=== PATIENT | female | born 1995 | race Caucasian/White ===

== ENCOUNTER → 2016-07-15 | Outpatient (CLI) | payer BC ==
[~2016-07-15] MED LIST: DOCU100C37 PO; DOXY1TAB3 PO; IBUP-1780 PO; OMEP20TA33 PO; OXYC-465 PO; PREN1TAB86 PO
--- OUTSIDE RECORDS SUMMARY | 2016-07-15 08:39 | XMS REPORT | Continuity of Care Document ---
Author Author [facility] Organization [facility] Address Unknown Phone Unavailable Care Team Providers Care Switch Crew Supervisor Name Role Phone NO, LOCAL PHYSICIAN PCP Unavailable Insurance Providers Payer Name Policy Number Subscriber Name Relationship [facility] [id number] Josh Crockett 19 Father Advance Directives Directive Response Recorded Date/Time Advance Directives No 03/22/16 12:44pm Health Care Power of Body Cleaner No 03/22/16 12:44pm Organ Donor Yes 03/22/16 12:44pm Resuscitation Status Full Code 03/22/16 12:44pm Problems No problem information available. Medications Current Home Medications Medication Dose Units Route Directions Days/Qty Instructions Start Date Doxylamine/Pyridoxine Hcl 1 Each 1 Each Oral Bedtime 03/22/16 Vit W-Ca,Fe,Fa(<1 Mg) 1 Each 1 Each Oral Daily 03/22/16 Social History Social History Problem Response Recorded Date/Time Recent Foreign Travel No 03/22/2016 12:47pm Recent Infectious Disease Exposure No 03/22/2016 12:47pm Smoking Status Never a Smoker 03/22/2016 12:46pm Query Response Start Date Stop Date Smoking Status Never a Smoker Hospital Discharge Instructions No hospital discharge instructions. Plan of Care Discharge Date 03/22/16 2:50pm Instructions/Education Provided OB OUTPATIENT DISCHARGE Hyperemesis Gravidarum (DC) Prescriptions See Medication Section Functional Status No functional status results. Allergies, Adverse Reactions, Alerts Allergen Type Severity Reaction Status Last Updated NKANo Known Allergies Allergy Mild Active 09/15/09 Immunizations No immunization records. Vital Signs Acute Vital Signs Vital Response Date/Time Temperature (Fahrenheit) 98.6 degrees F (97.6 - 99.5) 03/22/2016 2:50pm Temperature (Calculated Celsius) 37.64503 degrees C (36.4 - 37.5) 03/22/2016 2:00pm Temperature Source Tympanic 03/22/2016 2:50pm Pulse Rate (adult) 57 bpm (60 - 90) 03/22/2016 2:50pm Respiratory Rate 16 bpm (12 - 24) 03/22/2016 2:50pm O2 Sat by Pulse Oximetry 99 % (88 - 100) 03/22/2016 2:50pm Blood Pressure 106/57 mm Hg 03/22/2016 2:50pm Blood Pressure Mean 73 mm Hg 03/22/2016 11:07am Pain Numeric Pain Scale 0-No Pain 03/22/2016 2:50pm Height (Feet) 5 feet 03/22/2016 12:47pm Height (Inches) 0.00 inches 03/22/2016 12:47pm Height (Calculated Centimeters) 152.318122 cm 03/22/2016 12:47pm Weight (Pounds) 112 pounds 03/22/2016 12:47pm Weight (Ounces) 0.0 oz 03/22/2016 12:47pm Weight (Calculated Grams) 35148.35 gm 03/22/2016 12:47pm Weight (Calculated Kilograms) 50.394808 kilograms 03/22/2016 12:47pm Calculated BMI 21.9 03/22/2016 12:47pm Results Laboratory Results Test Name Result Units Flags Reference Collection Date/Time Result Date/ Time Comments White Blood Count 8.1 10^3/uL 4.3-11.0 03/22/2016 11:15am 03/22/2016 11 :42am Red Blood Count 4.20 10^6/uL L 4.35-5.85 03/22/2016 11:15am 03/22/2016 11 :42am Hemoglobin 13.3 G/DL 11.5-16.0 03/22/2016 11:15am 03/22/2016 11:42am Hematocrit 36 % 35-52 03/22/2016 11:15am 03/22/2016 11:42am Mean Corpuscular Volume 86 FL 80-99 03/22/2016 11:15am 03/22/2016 11: 42am Mean Corpuscular Hemoglobin 32 PG 25-34 03/22/2016 11:15am 03/22/2016 11:42am Mean Corpuscular Hemoglobin Concent 37 G/DL H 32-36 03/22/2016 11:15am 11:42am Red Cell Distribution Width 12.4 % 10.0-14.5 03/22/2016 11:15am 2015 11:42am Platelet Count 220 10^3/uL 130-400 03/22/2016 11:15am 03/22/2016 11: 42am Mean Platelet Volume 10.5 FL H 7.4-10.4 03/22/2016 11:15am 03/22/2016 11: 42am Neutrophils (%) (Auto) 67 % 42-75 03/22/2016 11:15am 03/22/2016 11: 42am Lymphocytes (%) (Auto) 25 % 12-44 03/22/2016 11:15am 03/22/2016 11: 42am Monocytes (%) (Auto) 7 % 0-12 03/22/2016 11:15am 03/22/2016 11:42am Eosinophils (%) (Auto) 0 % 0-10 03/22/2016 11:15am 03/22/2016 11:42am Basophils (%) (Auto) 0 % 0-10 03/22/2016 11:15am 03/22/2016 11:42am Neutrophils # (Auto) 5.4 X 10^3 1.8-7.8 03/22/2016 11:15am 03/22/2016 11:42am Lymphocytes # (Auto) 2.1 X 10^3 1.0-4.0 03/22/2016 11:15am 03/22/2016 11:42am Monocytes # (Auto) 0.6 X 10^3 0.0-1.0 03/22/2016 11:15am 03/22/2016 11: 42am Eosinophils # (Auto) 0.0 10^3/uL 0.0-0.3 03/22/2016 11:15am 03/22/2016 11:42am Basophils # (Auto) 0.0 10^3/uL 0.0-0.1 03/22/2016 11:15am 03/22/2016 11 :42am Urine Color YELLOW 03/22/2016 11:30am 03/22/2016 12:06pm Urine Clarity CLEAR 03/22/2016 11:30am 03/22/2016 12:06pm Urine pH 6 5-9 03/22/2016 11:3003/22/2016 12:06pm Urine Specific [place] 1.025 * 1.016-1.022 03/22/2016 11:30am 2015 12:06pm Urine Protein 1+ * NEGATIVE 03/22/2016 11:30am 03/22/2016 12:06pm Urine Glucose (UA) NEGATIVE NEGATIVE 03/22/2016 11:3003/22/2016 12 :06pm Urine RBC (Auto) NEGATIVE NEGATIVE 03/22/2016 11:3003/22/2016 12: 06pm Urine Ketones 3+ * NEGATIVE 03/22/2016 11:3003/22/2016 12:06pm Urine Nitrite NEGATIVE NEGATIVE 03/22/2016 11:30am 03/22/2016 12: 06pm Urine Bilirubin NEGATIVE NEGATIVE 03/22/2016 11:30am 03/22/2016 12: 06pm Urine Urobilinogen NORMAL MG/DL NORMAL 03/22/2016 11:3003/22/2016 12 :06pm Urine Leukocyte Esterase 1+ * NEGATIVE 03/22/2016 11:3003/22/2016 12 :06pm Urine RBC NONE /HPF 03/22/2016 11:30am 03/22/2016 12:06pm Urine WBC 0-2 /HPF 03/22/2016 11:30am 03/22/2016 12:06pm Urine Bacteria NEGATIVE /HPF 03/22/2016 11:3003/22/2016 12:06pm Urine Squamous Epithelial Cells 10-25 /HPF * 03/22/2016 11:302015 12:06pm Urine Crystals NONE /LPF 03/22/2016 11:3003/22/2016 12:06pm Urine Casts NONE /LPF 03/22/2016 11:30am 03/22/2016 12:06pm Urine Mucus LARGE /LPF * 03/22/2016 11:30am 03/22/2016 12:06pm Urine Culture Indicated NO 03/22/2016 11:30am 03/22/2016 12:06pm Sodium Level 137 MMOL/L 135-145 03/22/2016 11:15am 03/22/2016 11:52am Potassium Level 3.7 MMOL/L 3.6-5.0 03/22/2016 11:15am 03/22/2016 11: 52am Chloride Level 106 MMOL/L 98-107 03/22/2016 11:15am 03/22/2016 11:52am Carbon Dioxide Level 22 MMOL/L 21-32 03/22/2016 11:15am 03/22/2016 11: 52am Anion Gap 9 MMOL/L 5-14 03/22/2016 11:15am 03/22/2016 11:52am Blood Urea Nitrogen 9 MG/DL 7-18 03/22/2016 11:15am 03/22/2016 11:52am Creatinine 0.71 MG/DL 0.60-1.30 03/22/2016 11:15am 03/22/2016 11:52am BUN/Creatinine Ratio 13 03/22/2016 11:15am 03/22/2016 11:52am Estimat Glomerular Filtration Rate > 60 03/22/2016 11:15am 2015 11:52am GFR INTERPRETIVE DATA UNITS FOR ESTIMATED GFR (eGFR): mL/min/1.73 M2 REFERENCE RANGE FOR ESTIMATED GFR (eGFR) eGFR NORMAL eGFR >60 MODERATELY DECREASED eGFR 30-59 SEVERLY DECREASED eGFR 15-29 KIDNEY FAILURE <15 (OR DIALYSIS) Glucose Level 81 MG/DL 70-105 03/22/2016 11:15am 03/22/2016 11:52am Calcium Level 9.0 MG/DL 8.5-10.1 03/22/2016 11:15am 03/22/2016 11:52am Total Bilirubin 0.6 MG/DL 0.1-1.0 03/22/2016 11:15am 03/22/2016 11: 52am Alkaline Phosphatase 34 U/L L 40-136 03/22/2016 11:15am 03/22/2016 11: 52am Aspartate Amino Transf (AST/SGOT) 21 U/L 5-34 03/22/2016 11:15am 2015 11:52am Alanine Aminotransferase (ALT/SGPT) 24 U/L 0-55 03/22/2016 11:15am 11:52am Total Protein 7.0 G/DL 6.4-8.2 03/22/2016 11:15am 03/22/2016 11:52am Albumin 4.1 G/DL 3.2-4.5 03/22/2016 11:15am 03/22/2016 11:52am Procedures No known history of procedures. Encounters Encounter Location Arrival/Admit Date Discharge/Depart Date Attending Provider Departed Clinic [facility] 03/22/16 11:14am 03/22/16 2: 50pm PORFIRIO CARDOSO MD
--- NOTE | 2016-07-15 12:24 | Diagnostic Imaging Report ---
PROCEDURE: US Gallbladder. TECHNIQUE: Multiple real-time grayscale images were obtained over the right upper quadrant in various projections. INDICATION: Pain COMPARISON: There are no prior studies available for comparison. By history, the patient is approximately 28 weeks . FINDINGS: There is evidence for cholelithiasis or acute cholecystitis and the common bile duct is not dilated. The liver does not appear enlarged. There is no focal mass involving the liver and the biliary tree is not abnormally distended. The right kidney is unremarkable. The pancreas was obscured by bowel gas. There is no mass or free fluid collection evident. IMPRESSION: There is no acute abnormality of the right upper quadrant although the pancreas was obscured by bowel gas. Dictated by: Dictated on workstation # [id number]
== END ==
LOC: RAD 08:36
PROVIDERS: ATTEND Obstetrics & Gynecology
DX: R10.11 Right upper quadrant pain (principal)
CPT/HCPCS: 76705

== ENCOUNTER 2016-08-07 04:24 | Outpatient (CLI) | payer BC ==
[~2016-08-07] VITALS: Ht 152.4 cm; Wt 59.2 kg
[~2016-08-07 04:24] MED LIST changes: -DOCU100C37 PO; -IBUP-1780 PO; -OMEP20TA33 PO; -OXYC-465 PO
--- OUTSIDE RECORDS SUMMARY | 2016-08-07 04:29 | XMS REPORT | Continuity of Care Document ---
Author Author [facility] Organization [facility] Address Unknown Phone Unavailable Care Team Providers Care Sharepoint Manager Name Role Phone NO, LOCAL PHYSICIAN PCP Unavailable Insurance Providers Payer Name Policy Number Subscriber Name Relationship [facility] [id number] Josh Crockett 19 Father Advance Directives Directive Response Recorded Date/Time Advance Directives No 03/22/16 12:44pm Health Care Power of Mail Carrier No 03/22/16 12:44pm Organ Donor Yes 03/22/16 [...] - 99.5) 03/22/2016 2:50pm Temperature (Calculated Celsius) 37.59668 degrees C (36.4 - 37.5) 03/22/2016 2:00pm [...] 0.00 inches 03/22/2016 12:47pm Height (Calculated Centimeters) 152.349672 cm 03/22/2016 12:47pm Weight (Pounds) 112 pounds 03/22/2016 12:47pm Weight (Ounces) 0.0 oz 03/22/2016 12:47pm Weight (Calculated Grams) 53559.35 gm 03/22/2016 12:47pm Weight (Calculated Kilograms) 50.766789 kilograms 03/22/2016 12:47pm Calculated BMI 21.9 03/22/2016 [...] 6 5-9 03/22/2016 11:3003/22/2016 12:06pm Urine Specific [place] 1.025 * 1.016-1.022 03/22/2016 11:30am 2015 12:06pm [...] Discharge/Depart Date Attending Provider Departed Clinic [facility] 03/22/16 11:14am 03/22/16 2: 50pm PORFIRIO CARDOSO MD
[2016-08-07 04:47] VITALS: BP 108/63
[2016-08-07] MEDS ORDERED: D5 LR IV SOLUTION 1,000 ML IV ONE ×2 (04:57→05:00)
[2016-08-07] MEDS ORDERED: ONDANSETRON 4 MG/2 ML (SDV) Z0FRAN ONE (04:57)
[2016-08-07] MEDS ORDERED: ONDANSETRON 4 MG/2 ML (SDV) Z0FRAN IVP ONE (05:15)
[2016-08-07 05:28] LABS: BASOPHILS % (AUTO) 0 % (0-10); EOSINOPHILS % (AUTO) 0 % (0-10); LYMPHOCYTES # (AUTO) 1.6 X 10^3 (1.0-4.0); LYMPHOCYTES % (AUTO) 16 % (12-44); MEAN CORPUSCULAR HEMOGLOBIN 31 PG (25-34); MEAN CORPUSCULAR HGB CONC 35 G/DL (32-36); MEAN CORPUSCULAR VOLUME 88 FL (80-99); MONOCYTES # (AUTO) 0.7 X 10^3 (0.0-1.0); MONOCYTES % (AUTO) 7 % (0-12); NEUTROPHILS # (AUTO) 7.7 X 10^3 (1.8-7.8); NEUTROPHILS % (AUTO) 77 % (42-75); PLATELET COUNT 227 10^3/uL (130-400); RED BLOOD COUNT 3.81 10^6/uL (4.35-5.85); RED CELL DISTRIBUTION WIDTH 12.2 % (10.0-14.5)
[2016-08-07 05:49] LABS: ALANINE AMINOTRANSFERASE 14 U/L (0-55); ALBUMIN 3.6 G/DL (3.2-4.5); ANION GAP 13 MMOL/L (5-14); ASPARTATE AMINO TRANSFERASE 19 U/L (5-34); BILIRUBIN,TOTAL 0.8 MG/DL (0.1-1.0); BLOOD UREA NITROGEN 8 MG/DL (7-18); BUN/CREATININE RATIO 12; CALCIUM 9.1 MG/DL (8.5-10.1); CARBON DIOXIDE 18 MMOL/L (21-32); CHLORIDE 103 MMOL/L (98-107); CREATININE SERUM 0.68 MG/DL (0.60-1.30); GFR ESTIMATED > 60; GLUCOSE 83 MG/DL (70-105); POTASSIUM 3.9 MMOL/L (3.6-5.0); SODIUM 134 MMOL/L (135-145); TOTAL PROTEIN 6.6 G/DL (6.4-8.2)
[2016-08-07 06:00] VITALS: BP 110/66
[2016-08-07 06:07] LABS: BILIRUBIN,URINE NEGATIVE (NEGATIVE); KETONES,URINE 4+ (NEGATIVE); LEUKOCYTE ESTERASE ,URINE 1+ (NEGATIVE); NITRITE,URINE NEGATIVE (NEGATIVE); PH,URINE 6 (5-9); PROTEIN,URINE 2+ (NEGATIVE); UROBILINOGEN,URINE NORMAL (NORMAL)
[2016-08-07] MEDS ORDERED: FLU TRIvalent (5 YOA+) 2016-17 (AFLURIA) 0.5 ML IM ONE (07:00)
[2016-08-07] MEDS ORDERED: TETANUS,DIPTH,PERTUSS P/F (BOOSTRIX) 0.5 ML VIAL IM ONE ×2 (08:44→08:45)
[2016-08-07 08:45] VITALS: BP 112/69
[2016-08-07] MEDS ORDERED: OMEP20TA33 PO (09:03)
[2016-08-07 09:10] VITALS: BP 112/69
--- NOTE | 2016-08-09 14:42 | Physician Query-Final Dx ---
CHAVA RIOS 08/09/16 1441: Clinic Account Progress/Dx Physician Query: Please give diagnosis Date of Service Aug 07, 2016 at 04:24 PORFIRIO CARDOSO MD 08/17/16 0748: Clinic Account Progress/Dx DIAGNOSIS: Diagnosis false labor GABRIEL,CHAVA Aug 09, 2016 14:41 PORFIRIO CARDOSO MD Aug 17, 2016 07:48
== END 2016-08-07 09:10 | disposition home or self-care (01) ==
LOC: WSo 04:24 → LDRP 04:25 → WSo 09:10
PROVIDERS: ATTEND Obstetrics & Gynecology
DX: O47.03 False labor before 37 completed weeks of gestation, third trimester (principal); Z3A.32 32 weeks gestation of pregnancy; Z23 Encounter for immunization
CPT/HCPCS: 36415; 80053; 81000; 85025; 87088; 90471; 90715; 96361; 96374; 99213

== ENCOUNTER 2016-09-27 10:23 | Inpatient (IN) | payer BC, MEDICAID ==
[2016-09-27] VITALS (48 sets, daily range): BP systolic 107–145; BP diastolic 55–93
[~2016-09-27] VITALS: Ht 152.4 cm; Wt 65.8 kg
[~2016-09-27 10:23] MED LIST changes: +OMEP20TA33 PO
[2016-09-27 11:29] LABS: BASOPHILS % (AUTO) 0 % (0-10); EOSINOPHILS % (AUTO) 0 % (0-10); LYMPHOCYTES # (AUTO) 1.4 X 10^3 (1.0-4.0); LYMPHOCYTES % (AUTO) 16 % (12-44); MEAN CORPUSCULAR HEMOGLOBIN 27 PG (25-34); MEAN CORPUSCULAR HGB CONC 33 G/DL (32-36); MEAN CORPUSCULAR VOLUME 82 FL (80-99); MEAN PLATELET VOLUME 11.9 FL (7.4-10.4); MONOCYTES # (AUTO) 0.6 X 10^3 (0.0-1.0); MONOCYTES % (AUTO) 7 % (0-12); NEUTROPHILS # (AUTO) 6.4 X 10^3 (1.8-7.8); NEUTROPHILS % (AUTO) 77 % (42-75); PLATELET COUNT 147 10^3/uL (130-400); RED BLOOD COUNT 3.84 10^6/uL (4.35-5.85); RED CELL DISTRIBUTION WIDTH 12.9 % (10.0-14.5); WHITE BLOOD COUNT 8.3 10^3/uL (4.3-11.0)
[2016-09-27] MEDS ORDERED: SUFENTA 0.6MCG/ML BUPIVA 0.125 100 ML ONE (12:12)
[2016-09-27] MEDS ORDERED: BUPIVACAINE 0.25% 30 ML (SENSORCAINE) VIAL ONE (12:12)
[2016-09-27] MEDS ORDERED: D5 LR IV SOLUTION 1,000 ML IV ONE (12:12)
[2016-09-27] MEDS ORDERED: fentaNYL INJECTION 100 MCG/2 ML AMP ONE (12:44)
[2016-09-27] MEDS: D5 LR IV SOLUTION 1,000 ML IV SCH ×2 (12:45→20:00)
[2016-09-27] MEDS ORDERED: OXYTOCIN/NORMAL SALINE 500 ML IV SCH ×2 (12:45→22:20)
--- NOTE | 2016-09-27 13:25 | History & Physical ---
History and Physical this patient is a 21-year-old G1 white female with an EDC of 5 1217 her putting her at 39-3/7 weeks gestation. experienced a copious amount of clear fluid leakage from the vagina at about 9 a.m. She began rosy gradually since then. On presentation she was grossly ruptured. Baby was vertex. Her GBS culture is negative. She's had no specific problems with this . Allergies are none Medications are vitamins and Pepcid Medical social and surgical histories are per her antepartum record HEENT exam is normal Neck is supple no lymphadenopathy no thyromegaly Abdomen is gravid soft nontender nondistended Extreme show clubbing or cyanosis. There is no Homans sign. Pelvic exam per the nurse is a cervix of right at 3 similar dilated 50 percent effaced. Gross rupture was noted. Laboratory Tests 09/27/16 11:05 Lab work is normal. Patient is rosy every 2-3 minutes. She was quite uncomfortable and has now been on allow an epidural heart rate pattern is normal and reassuring Assessment and plan term at 39 weeks plus gestation with PROM patient has had an uncomplicated she's banning managed expectantly at this point. She had been allow epidural. We expect a vaginal delivery although would be prepared for if needed. term with PROM at 39-3/7 weeks gestation Allergies and Home Medications Allergies Coded Allergies: NKANo Known Allergies (Unverified Allergy, Mild, 09/15/09) Home Medications Doxylamine/Pyridoxine HCl 1 Each Tablet.dr, 1 EACH PO HS, (Reported) Omeprazole Magnesium 20 Mg Tablet.dr, 20 MG PO DAILY, (Reported) Vit W-Ca,Fe,FA(<1 mg) 1 Each Tablet, 1 EACH PO DAILY, (Reported) Clinical Quality Measures DVT/VTE Risk/Contraindication: Risk Factor Score Per Nursin RFS Level Per Nursing on Admit: 1=Low/No VTE PPX PORFIRIO CARDOSO MD September 27, 2016 1:25 pm
[2016-09-27] MEDS ORDERED: LACTATED RINGERS 1,000 ML IV ONE (14:49)
[2016-09-27] MEDS ORDERED: CATHETER FLUSH 10 ML SYR IV PRN (15:00)
[2016-09-27] MEDS ORDERED: NALOXONE 0.4 MG/ML 1 ML (NARCAN) VIAL IV PRN (15:00)
[2016-09-27] MEDS ORDERED: EPIDURAL (SUFENTA 0.6MCG/ML BUPIVA 0.125%) 100 ML BAG EPI SCH (15:00)
[2016-09-27] MEDS ORDERED: LIDOCAINE/EPI 1%-1:200,000 (XYLOCAINE) 30 ML VIAL ONE (19:30)
[2016-09-27] MEDS ORDERED: TETANUS,DIPTH,PERTUSS P/F (BOOSTRIX) 0.5 ML VIAL IM ONE (22:30)
[2016-09-27] MEDS ORDERED: MEASLES,MUMPS,RUBELLA 1 EA INJ SC ONE (22:30)
[2016-09-27] MEDS ORDERED: BENZOCAINE/MENTHOL (DERMOPLAST) 56 ML CAN TP PRN (22:30)
[2016-09-28] VITALS (14 sets, daily range): BP systolic 119–139; BP diastolic 60–79
[2016-09-28] MEDS: KETOROLAC 30 MG/ML VIAL IV SCH ×3 (00:19→17:30)
[2016-09-28] MEDS: oxyCODONE/APAP 10/325MG (PERCOCET 10) TABLET PO PRN ×3 (01:45→23:08)
[2016-09-28] MEDS ORDERED: IBUPROFEN 600 MG (MOTRIN) TAB PO ONE (06:09)
[2016-09-28] MEDS ORDERED: IBUPROFEN 800 MG (MOTRIN) TAB PO ONE ×2 (06:19→12:16)
[2016-09-28] MEDS ORDERED: WITCH HAZEL(TUCKS) 40 EA JAR ONE (06:20)
--- NOTE | 2016-09-28 07:46 | Progress Note-Standard ---
Standard Progress Note Progress Notes/Assess & Plan Progress/Assessment & Plan patient without complaint. She is ambulating, voiding, tolerating by mouth, has good pain control. Vital Signs Date Time Temp Pulse Resp B/P (MAP) Pulse Ox O2 Delivery O2 Flow Rate FiO2 09/28/16 02:01 18 136/74 09/28/16 01:31 93 139/77 Room Air 09/28/16 01:30 92 132/79 Room Air 09/28/16 01:16 93 133/64 Room Air 09/28/16 01:01 90 132/61 Room Air 09/28/16 00:46 104 131/65 Room Air 09/28/16 00:31 98.9 100 136/67 Room Air 09/28/16 00:16 99.4 105 121/66 Room Air 09/28/16 00:01 97.7 114 126/60 Room Air 09/27/16 23:53 98.3 116 140/69 Room Air 09/27/16 23:24 09/27/16 23:15 Non Rebreather 10.00 09/27/16 23:00 106 18 123/87 Non Rebreather 10.00 09/27/16 22:45 83 18 133/61 Room Air 09/27/16 22:30 92 18 133/65 Room Air 09/27/16 22:15 93 18 131/75 Room Air 09/27/16 22:00 78 18 122/74 Room Air 09/27/16 21:45 Room Air 09/27/16 21:30 92 18 144/69 Room Air 09/27/16 21:15 90 18 130/69 Room Air 09/27/16 21:00 83 18 130/81 Room Air 09/27/16 20:45 75 18 133/70 Room Air 09/27/16 20:30 98.2 85 18 127/77 Room Air 09/27/16 20:15 84 18 136/89 Room Air 09/27/16 20:00 84 18 132/93 Room Air 09/27/16 19:45 73 18 123/72 Room Air 09/27/16 19:30 65 18 131/71 Room Air 09/27/16 19:15 95 18 113/70 Room Air 09/27/16 18:45 78 18 114/67 Room Air 09/27/16 18:30 93 18 122/73 Room Air 09/27/16 18:15 82 16 123/70 Room Air 09/27/16 18:00 81 16 123/79 Room Air 09/27/16 17:45 89 18 126/65 Room Air 09/27/16 17:30 93 18 122/77 Room Air 09/27/16 17:15 78 20 124/85 100 Room Air 09/27/16 17:00 87 20 123/68 100 Room Air 09/27/16 16:45 81 18 125/63 98 Room Air 09/27/16 16:30 81 18 125/63 98 Room Air 09/27/16 16:15 90 18 122/70 99 Room Air 09/27/16 16:00 86 16 111/63 100 Room Air 09/27/16 15:45 86 16 111/63 100 Room Air 09/27/16 15:30 92 18 145/60 99 Room Air 09/27/16 15:15 85 18 113/64 99 Room Air 09/27/16 15:00 81 20 118/75 100 Room Air 09/27/16 14:45 86 20 120/64 100 Room Air 09/27/16 14:30 81 20 119/61 100 Room Air 09/27/16 14:15 96 18 113/73 100 Room Air 09/27/16 14:00 99 18 141/60 100 Room Air 09/27/16 13:45 83 18 123/56 100 Room Air 09/27/16 13:40 84 16 140/76 99 Room Air 09/27/16 13:35 69 16 116/59 99 Room Air 09/27/16 13:30 61 16 113/59 99 Room Air 09/27/16 13:25 96 16 109/55 99 Room Air 09/27/16 13:20 85 16 117/59 99 Room Air 09/27/16 13:15 86 18 107/58 98 Room Air 09/27/16 13:10 69 20 107/56 98 Room Air 09/27/16 13:05 100 20 124/80 98 Room Air 09/27/16 13:00 88 20 121/83 99 Room Air 09/27/16 12:55 90 20 117/81 99 Room Air 09/27/16 10:18 76 20 135/88 Room Air I & O 09/28/16 07:00 Intake Total 2147 ml Output Total 1 ml Balance 2146 ml vital signs are stable. Patient afebrile. Fundus is firm below the umbilicus nontender. Extremities show no clubbing cyanosis. There is no Homans sign. There is some pretibial pitting edema that is normal. Assessment and plan day number 1 status post term spontaneous vaginal delivery doing well. Plan is for routine convalescence care. PORFIRIO CARDOSO MD September 28, 2016 7:46 am
[2016-09-28] MEDS ORDERED: IBUP-1780 PO (07:53)
[2016-09-28] MEDS ORDERED: OXYC-465 PO (07:53)
[2016-09-28] MEDS ORDERED: DOCU100C37 PO (07:53)
--- NOTE | 2016-09-28 07:54 | Discharge Instructions ---
Discharge Instructions Discharge Medications New, Converted or Re-Newed RX: RX on Chart Patient Instructions Patient Instructions: as directed Return to The Hospital For: as directed Activity & Diet Discharge Diet: No Restrictions Activity as Tolerated: No Orders-Post D/C & Referrals Follow Up Appt: Call to make follow up appt. for patient in 4 weeks. Activity Per routine post vaginal delivery instructions. Diet as tolerated Patient may shower or tub bathe as desired. PORFIRIO CARDOSO MD September 28, 2016 7:54 am
[2016-09-28] MEDS: D5 LR IV SOLUTION 1,000 ML IV SCH ×2 (08:25→13:39)
--- NOTE | 2016-09-28 08:55 | OPERATIVE REPORT ---
DATE OF SERVICE: 09/27/2016 DELIVERY NOTE The patient delivered by term spontaneous vaginal delivery a viable male with Apgars of 8 and 9 at 1 and 5 minutes with a time of 2324 and a weight of 7 pounds 14 ounces. The patient delivered over midline episiotomy that was performed at her request after she had pushed about 10 times with the patient on the perineum and could not push the baby through the perineum and episiotomy was performed. The patient delivered the baby from straight LA. It had turned during her pushing from straight OP. Immediately after the head delivered, it turned back to OP and nuchal cord was easily released. The baby was bulb suctioned and delivery completed. The baby was warmed, stimulated, dried and suctioned again. The cord was doubly clamped. Father cut the cord. The baby was passed to mom's abdomen. Cord bloods were obtained, including an arterial pH secondary to persistent decelerations during the terminal phase of pushing. The placenta delivered spontaneously. Monk was normal with a 3-vessel cord. The cervix, vagina, rectum and perineum were examined. There was a small laceration in the posterior vaginal wall along the right sulcus. This was proximal to the apex of the episiotomy. It was repaired and then the same suture was brought down, repairing the midline episiotomy in the usual manner without difficulty with good reapproximation, good hemostasis and good anatomic effect. The patient tolerated the delivery and repair well. Her epidural was augmented with local in her perineum as she neared the end of her pushing, as she neared the end of the second stage of labor. Sponge and needle counts were correct on completion of the delivery and the repair. The rectum was intact. Blood loss was around 300 mL. The patient tolerated the procedure, the delivery and the repair well and remained in the LDR for recovery. The baby remained with the mom. Job ID: [id number] DocumentID: [id number] Dictated Date: 09/27/2016 23:50:02 Design Teacher Date: 09/28/2016 08:54:58 Dictated By: PORFIRIO CARDOSO MD
[2016-09-28] MEDS: DOCUSATE SODIUM 100 MG (COLACE) CAP PO SCH ×2 (09:16→21:35)
[2016-09-28] MEDS: IBUPROFEN 800 MG (MOTRIN) TAB PO SCH ×3 (12:24→23:40)
--- NOTE | 2016-09-28 13:07 | Anesthesia-Regional Post-Op ---
Regional Patient Condition Mental Status: Alert, Oriented x3 Circulation: Same as Pre-Op Headache: Absent Sensation: Full Recovery Motor Block: Absent Post Op Complications Complications None Follow Up Care/Instructions Patient Instructions None needed. Anesthesia/Patient Condition Patient is doing well, no complaints, stable vital signs, no apparent adverse anesthesia problems. No complications reported per nursing. HARSHIL ROBERSON CRNA September 28, 2016 13:07
[2016-09-29] MEDS: IBUPROFEN 800 MG (MOTRIN) TAB PO SCH ×2 (05:35→12:14)
[2016-09-29 06:35] VITALS: BP 112/56
--- NOTE | 2016-09-29 07:38 | Progress Note-Standard ---
Standard Progress Note Progress Notes/Assess & Plan Progress/Assessment & Plan patient without complaint. She is ambulating, voiding, tolerating by mouth, has good pain control. Vital Signs Date Time Temp Pulse Resp B/P (MAP) Pulse Ox O2 Delivery O2 Flow Rate FiO2 09/28/16 02:01 18 136/74 09/28/16 01:31 93 139/77 Room Air 09/28/16 01:30 92 132/79 Room Air 09/28/16 01:16 93 133/64 Room Air 09/28/16 01:01 90 132/61 Room Air 09/28/16 00:46 104 131/65 Room Air 09/28/16 00:31 98.9 100 136/67 Room Air 09/28/16 00:16 99.4 105 121/66 Room Air 09/28/16 00:01 97.7 114 126/60 Room Air 09/27/16 23:53 98.3 116 140/69 Room Air 09/27/16 23:24 09/27/16 23:15 Non Rebreather 10.00 09/27/16 23:00 106 18 123/87 Non Rebreather 10.00 09/27/16 22:45 83 18 133/61 Room Air 09/27/16 22:30 92 18 133/65 Room Air 09/27/16 22:15 93 18 131/75 Room Air 09/27/16 22:00 78 18 122/74 Room Air 09/27/16 21:45 Room Air 09/27/16 21:30 92 18 144/69 Room Air 09/27/16 21:15 90 18 130/69 Room Air 09/27/16 21:00 83 18 130/81 Room Air 09/27/16 20:45 75 18 133/70 Room Air 09/27/16 20:30 98.2 85 18 127/77 Room Air 09/27/16 20:15 84 18 136/89 Room Air 09/27/16 20:00 84 18 132/93 Room Air 09/27/16 19:45 73 18 123/72 Room Air 09/27/16 19:30 65 18 131/71 Room Air 09/27/16 19:15 95 18 113/70 Room Air 09/27/16 18:45 78 18 114/67 Room Air 09/27/16 18:30 93 18 122/73 Room Air 09/27/16 18:15 82 16 123/70 Room Air 09/27/16 18:00 81 16 123/79 Room Air 09/27/16 17:45 89 18 126/65 Room Air 09/27/16 17:30 93 18 122/77 Room Air 09/27/16 17:15 78 20 124/85 100 Room Air 09/27/16 17:00 87 20 123/68 100 Room Air 09/27/16 16:45 81 18 125/63 98 Room Air 09/27/16 16:30 81 18 125/63 98 Room Air 09/27/16 16:15 90 18 122/70 99 Room Air 09/27/16 16:00 86 16 111/63 100 Room Air 09/27/16 15:45 86 16 111/63 100 Room Air 09/27/16 15:30 92 18 145/60 99 Room Air 09/27/16 15:15 85 18 113/64 99 Room Air 09/27/16 15:00 81 20 118/75 100 Room Air 09/27/16 14:45 86 20 120/64 100 Room Air 09/27/16 14:30 81 20 119/61 100 Room Air 09/27/16 14:15 96 18 113/73 100 Room Air 09/27/16 14:00 99 18 141/60 100 Room Air 09/27/16 13:45 83 18 123/56 100 Room Air 09/27/16 13:40 84 16 140/76 99 Room Air 09/27/16 13:35 69 16 116/59 99 Room Air 09/27/16 13:30 61 16 113/59 99 Room Air 09/27/16 13:25 96 16 109/55 99 Room Air 09/27/16 13:20 85 16 117/59 99 Room Air 09/27/16 13:15 86 18 107/58 98 Room Air 09/27/16 13:10 69 20 107/56 98 Room Air 09/27/16 13:05 100 20 124/80 98 Room Air 09/27/16 13:00 88 20 121/83 99 Room Air 09/27/16 12:55 90 20 117/81 99 Room Air 09/27/16 10:18 76 20 135/88 Room Air I & O 09/28/16 07:00 Intake Total 2147 ml Output Total 1 ml Balance 2146 ml vital signs are stable. Patient afebrile. Fundus is firm below the umbilicus nontender. Extremities show no clubbing cyanosis. There is no Homans sign. There is some pretibial pitting edema that is normal. Assessment and plan day number 1 status post term spontaneous vaginal delivery doing well. Plan is for routine convalescence care. September 29, 2016 Patient without complaint. She is ambulating, voiding, tolerating by mouth, has good pain control, and is requesting discharge home. Vital Signs Date Time Temp Pulse Resp B/P (MAP) Pulse Ox O2 Delivery O2 Flow Rate FiO2 09/29/16 06:35 98.4 77 16 112/56 98 Room Air 09/28/16 23:08 98.0 92 16 124/73 99 Room Air 09/28/16 20:00 98.2 82 14 121/72 99 Room Air 09/28/16 13:52 97.0 87 16 125/78 100 Room Air 09/28/16 09:16 97.9 76 18 119/72 99 Room Air I & O 09/29/16 07:00 Intake Total 750 ml Output Total 2 ml Balance 748 ml vital signs are stable. Patient afebrile. Fundus is firm below the umbilicus and nontender. Extremities show no clubbing cyanosis. There is no Homans sign. Assessment and plan day number 2 status post term spontaneous vaginal delivery doing well. Plan is for discharge home with follow-up in clinic Final Diagnosis term spontaneous vaginal delivery PORFIRIO CARDOSO MD September 29, 2016 7:38 am
[2016-09-29 08:00] VITALS: BP 116/61
[2016-09-29] MEDS: DOCUSATE SODIUM 100 MG (COLACE) CAP PO SCH (08:45)
[2016-09-29] MEDS: oxyCODONE/APAP 10/325MG (PERCOCET 10) TABLET PO PRN (12:14)
[2016-09-29] MEDS: D5 LR IV SOLUTION 1,000 ML IV SCH (13:14)
== END 2016-09-29 13:30 | disposition home or self-care (01) | DRG 775 ==
LOC: WSo 10:23 → LDRP 10:23 → WSo 10:44 → LDRP 09-28 02:30
PROVIDERS: ADMIT Obstetrics & Gynecology; ATTEND Obstetrics & Gynecology
PROC: 10E0XZZ Delivery of Products of Conception, External Approach (ICD-10-PCS; principal; 2016-09-27)
PROC: 0W8NXZZ Division of Female Perineum, External Approach (ICD-10-PCS; 2016-09-27)
PROC: 0UQGXZZ Repair Vagina, External Approach (ICD-10-PCS; 2016-09-27)
DX: O71.4 Obstetric high vaginal laceration alone (principal); O69.81X0 Labor and delivery complicated by cord around neck, without compression, not applicable or unspecified; Z37.0 Single live birth; Z3A.39 39 weeks gestation of pregnancy
CPT/HCPCS: 36415; 85025; 86850; 86900; 86901; 99212